=== PATIENT | female | born 1950 | race Caucasian/White ===

== ENCOUNTER → 2022-12-11 14:23 | Outpatient (CLI) | payer MEDICARE, SELFPAY ==
--- NOTE | 2022-12-11 14:31 | DI.RAD.S_ITS ---
PROCEDURE: XR KNEE LT 3V INDICATIONS: ACUTE PAIN ON LEFT KNEE TECHNIQUE: 3 views of the knee were acquired. COMPARISON: None. FINDINGS: Bones: No fractures or dislocations. No suspicious bony lesions. Mild tricompartmental osteoarthritis with osseous hypertrophy. Soft tissues: Small joint effusion. Chondrocalcinosis. IMPRESSION: Mild left knee tricompartmental osteoarthritis. Small nonspecific joint effusion. Dictated by: Isabela Darby MD, PhD on 12/11/2022 at 14:58 Approved by: Isabela Darby MD, PhD on 12/11/2022 at 14:59
== END ==
PROVIDERS: PCP Family Medicine; Referring Provider Family Medicine; Visit Provider Family Medicine
DX: M17.12 Unilateral primary osteoarthritis, left knee (principal); M25.562 Pain in left knee; M25.462 Effusion, left knee
CPT/HCPCS: 73562

== ENCOUNTER → 2023-05-04 11:03 | Outpatient (CLI) | payer MEDICARE, SELFPAY ==
--- NOTE | 2023-05-04 | DI.CT.S_ITS ---
PROCEDURE: CT FOOT RIGHT WITHOUT CON INDICATIONS: other specified soft tissue disorders TECHNIQUE: Noncontrast 1-1.5 mm axial sections acquired from above the tibiotalar joint to the bottom of the calcaneus, with coronal and sagittal reformats. COMPARISON: None. FINDINGS: Image quality: Excellent. Bones: Ankle mortise is congruent. Alignment of right foot is anatomic. No acute fracture or dislocation. Well corticated tiny bony fragments are noted adjacent to tip of medial malleolus consistent with old injury. No definite osteochondral injuries of talar dome. Osteoarthritic changes are noted throughout right foot joints. No metatarsal stress fractures. No suspicious bony lesions. Well-defined plantar and dorsal calcaneal enthesophytes are seen. tendon insertion. No bony erosive changes are noted. Soft tissues: There is subcutaneous soft tissue edema involving plantar aspect of right heel with skin thickening and subcutaneous fat stranding. No subcutaneous emphysema. No discrete drainable fluid collection is seen. Thickened distal Achilles tendon at its posterior calcaneal insertion is noted. No Achilles tendon rupture. The extensor, flexor, and peroneus tendons are grossly intact. No soft tissue mass is seen. IMPRESSION: 1. Suggestion of mild cellulitis involving plantar aspect of posterior right heel soft tissue. No discrete drainable fluid collection. No soft tissue mass is seen. 2. Osteoarthritic changes throughout right foot. No acute fracture or dislocation. No CT evidence of osteomyelitis. 3. Well-defined plantar and dorsal calcaneal enthesophytes. Thickened distal Achilles tendon suggestive of tendinosis. No Achilles tendon rupture. Dictated by: Carlos Sanchez M.D. on 05/04/2023 at 12:42 Approved by: Carlos Sanchez M.D. on 05/04/2023 at 13:16
== END ==
PROVIDERS: PCP Family Medicine; Referring Provider Family Medicine; Visit Provider Family Medicine
DX: M79.89 Other specified soft tissue disorders (principal); M77.31 Calcaneal spur, right foot
CPT/HCPCS: 73700

== ENCOUNTER → 2023-09-15 12:13 | Outpatient (CLI) | payer MEDICARE, SELFPAY ==
--- NOTE | 2023-09-15 | DI.ECHO.S_ITS ---
[place] +---------+ Hospital : : [address] : [place] [address] : : [id number] : : Phone: [phone] Echocardiogram Report + + :Name: ROBERTH ALVAREZ Study Date: 09/15/2023 Height: 66 in : :[facility] ReadingLocation: Weight: 165 lb : : Gender: Female BSA: 1.8 m2 : :: 1950 Age: 72 yrs BP: 141/89 mmHg: :Reason For Study: MURMUR : :Ordering Physician: LYNNETTE, : :JASON Diana Performed By: Tila Mancilla : :Referring: JASON CHURCH : + + Interpretation Summary 1) Normal left ventricular thickness, size, wall motion, and systolic function (EF 60-65%). 2) Normal right ventricular size and function. 3) There is mild to moderate aortic stenosis (valve area 1.3cm2, mean gradient 17mmHg, severity ratio 0.48). 4) No prior Echo available for comparison. Procedure: A two-dimensional transthoracic echocardiogram with color flow and Doppler was performed. The study quality was technically adequate. There is no prior echocardiogram noted for this patient. The patient was in sinus rhythm with heart rates between 73-81 bpm during the exam. Left Ventricle: The left ventricle is normal in size and wall thickness. The ejection fraction is estimated to be 60-65%. Left ventricular systolic function appears normal without focal wall motion abnormalities. Diastolic parameters suggest a relaxation abnormality of the left ventricle, consistent with probable normal filling pressures. Right Ventricle: The right ventricle is normal in size and function. Atria: The left atrial size is normal. Right atrial size is normal. There is no Doppler evidence for an interatrial shunt. Mitral Valve: There is mild mitral annular calcification. The mitral valve leaflets appear borderline thickened, but open well. There is trace mitral regurgitation. Aortic Valve: The aortic valve is moderately calcified. The aortic valve is trileaflet. The peak aortic velocity is 2.6 m/sec. The aortic valve mean gradient is 17 mmHg. The calculated aortic valve area is 1.3 cm2. There is mild to moderate aortic stenosis. No aortic regurgitation is present. Tricuspid Valve: The tricuspid valve is normal in structure and function. There is trace tricuspid regurgitation. Pulmonary artery pressures cannot be estimated because of the lack of a measurable TR jet velocity. Pulmonic Valve: The pulmonic valve leaflets are thin and pliable; valve motion is normal. There is no pulmonic valvular regurgitation. Great Vessels: The aortic root is normal size. The dimensions of the ascending aorta are normal. The IVC is of normal diameter and collapses greater than 50% with a sniff. This suggests a low right atrial pressure of 3 mm Hg. Pericardium/ Pleura There is no pericardial effusion. There is no pleural effusion. MMode/2D Measurements & Calculations LVIDd: 4.3 cm LVOT diam: 2.0 cm LVIDs: 2.8 cm Ao root diam: 3.1 cm FS: 35.0 % asc Aorta Diam: 3.4 cm IVSd: 0.93 cm Ao Arch Diam (Prox Trans): 2.8 cm LVPWd: 0.99 cm LV lopes. diameter/BSA (cm/m^2): 2.3 LV sys. diameter/BSA (cm/m^2): 1.5 LA A2 area: 18.1 cm2 RA long axis: 4.8 cm LA A4 area: 17.2 cm2 RA area: 13.8 cm2 LA length (vol): 5.2 cm RA vol: 33.7 ml LA vol: 50.7 ml RA : 18.3 ml/m2 LA vol index: 27.5 ml/m2 IVC diam: 2.1 cm RVD1 (basal): 3.1 cm RVD2 (mid): 2.7 cm TAPSE: 1.7 cm Doppler Measurements & Calculations Ao V2 max: 264.9 cm/sec LVOT Max Leonid: 113.7 cm/sec Ao V2 mean: 175.8 cm/sec LV V1 max P.2 mmHg Ao max P.9 mmHg LV V1 VTI: 25.5 cm Ao mean P.3 mmHg MAGUI(I,D): 1.5 cm2 Ao V2 VTI: 52.8 cm MAGUI(V,D): 1.3 cm2 sev ratio: 0.48 MAGUI indexed to BSA (cm^2/m^2): 0.80 MV E max leonid: 70.9 cm/sec PA V2 max: 106.8 cm/sec MV A max leonid: 101.3 cm/sec PA V2 mean: 77.9 cm/sec MV E/A: 0.70 PA mean P.7 mmHg Med Peak E' Leonid: 6.5 cm/sec PA pr(Accel): 34.5 mmHg E/E' med: 11.0 Lat Peak E' Leonid: 6.7 cm/sec E/E' lat: 10.6 E/e' average: 10.8 MV dec time: 0.24 sec SV(LVOT): 77.6 ml Reading Physician:02:10 PM
== END ==
PROVIDERS: PCP Family Medicine; Referring Provider Family Medicine; Visit Provider Family Medicine
DX: I34.81 Nonrheumatic mitral (valve) annulus calcification (principal); I35.0 Nonrheumatic aortic (valve) stenosis; R01.1 Cardiac murmur, unspecified
CPT/HCPCS: 93306

== ENCOUNTER 2024-01-18 10:36 | Day surgery (SDC) | payer MEDICARE, SELFPAY ==
--- NOTE | 2024-01-18 | PATH_ITS ---
[facility] Accession Number: [id number] No. of containers..01 Tissue . 01 Material submitted: . gastrointestinal site - GASTRIC POLYPS . 01 Diagnosis: GASTRIC POLYPS: Fundic gland polyp. No Helicobacter organisms identified on H/E stain. No intestinal metaplasia, dysplasia, or malignancy identified. [facility] 01/20/2024 1251 Local . 01 Electronically signed: . Warren Ko MD, Pathologist NPI- [id number] . 01 Gross description: . Received in formalin with two patient identifiers and gastric polyp, are two russell soft tissue fragments, both measuring 0.3 cm in greatest dimension, submitted in A1. ([id number]) /MRV 01/20/2024 125 Local . 01 Pathologist provided ICD-10: K31.7 . 01 CPT . 415255 Specimen Comment: A courtesy copy of this report has been sent to [phone] Performed at: [address] [facility] [address], [place], [place] [id number] MD Warren Ko MD Phone: [phone]
[2024-01-18 11:18] VITALS: BP 158/98; PULSE 90; RESP 16; TEMP 36.8; O2SAT 97
--- NOTE | 2024-01-18 11:30 | P.HP_ITS ---
History of Present Illness History of Present Illness Chief complaint: EGD/Colonoscopy Narrative: History of GERD currently under fairly reasonable control. In addition history of colonic polyps with 6 year follow-up colonoscopy [facility] Medical History (Updated 01/16/23 @ 15:33 by Renea Higuera) Measles (~1954) Chicken pox (~1953) Tinnitus (~2009) GERD (gastroesophageal reflux disease) (~2017) Surgical History (Updated 01/16/23 @ 15:33 by Renea Higuera) Anesthesia Cervical dysplasia (~1981) Family History (Updated 01/16/23 @ 15:34 by Renea Higuera) Father Alzheimer's disease Mother Hypertension Hyperlipidemia Alzheimer's disease Brother Colon cancer Social History Smoking Status: Never smoker alcohol intake: current Meds Home Medications and Allergies Home Medications Medication Instructions Recorded Confirmed Type atorvastatin 10 mg tablet 10 mg PO DAILY 01/18/24 01/18/24 History enalapril maleate 5 mg tablet 5 mg PO DAILY 01/18/24 01/18/24 History famotidine 40 mg tablet 40 mg PO DAILY 01/18/24 01/18/24 History hydrochlorothiazide 12.5 mg capsule 12.5 mg PO DAILY 01/18/24 01/18/24 History Allergies Allergy/AdvReac Type Severity Reaction Status Date / Time belladonna alkaloids Allergy Intermediate Confusion Verified 01/18/24 11:05 Exam Vital Signs (past 8 hours): - 01/18/24 11:18 Temperature 98.2 F Pulse Rate 90 Respiratory Rate 16 Blood Pressure 158/98 H Pulse Oximetry 97 Oxygen Delivery Method Room Air Oxygen Delivery Method Room Air Narrative Exam Narrative: Oropharynx free of lesions Chest clear to auscultation percussion Assessment & Plan Assessment & Plan narrative: Need for follow-up screening colonoscopy for history of a polyp 6 years ago. Risks, benefits, alternatives have been explained. EGD to be done for history of GERD Time-Based Coding :: [TOTAL MINUTES] spent with patient and on the chart (including review of chart, obtaining history, exam, reviewing outside data, placing orders, documenting exam and treatment plan, and counseling patient) on [DATE].
--- NOTE | 2024-01-18 11:32 | PM.OP.EC ---
Operative Date/Time/Diagnoses Date of procedure: 01/18/24 Pre-op diagnosis: See indication and findings Procedure & Clinicians Study performed: EGD and colonoscopy Indications: Follow-up screening for a polyp 6 years ago all and history of GERD Surgeon: Josue Bermeo Procedure Notes Procedure in detail: After informed consent was obtained the patient was placed in left lateral decubitus position. The video upper scope was placed into the oropharynx and with the patient's help swallowed into the esophagus. The esophagus stomach and duodenum were carefully examined. On withdrawal, retroflexed view the GE junction was performed. The scope was removed. The patient tolerated procedure well. The patient was then turned to the scope substituted for a colonoscope. This was introduced into the rectum slowly advanced to the cecum. On slow withdrawal mucosa was carefully examined. The scope was removed. The patient does the procedure well. Blood loss none Complications none Sedation mac Findings EGD 1. Completely normal esophagus and squamocolumnar junction 2. Normal lower esophageal sphincter 3. Multiple semi sessile polyps in the body. Biopsies sampled. Expect these to be fundic gland polyps 4. Normal distal stomach 5. Normal duodenal bulb and sweep Colonoscopy 1. 3 cm submucosal sessile yellow polypoid lesion with a positive pillow sign consistent with lipoma in the mid ascending colon 2. Otherwise negative colonoscopy to cecum Patient should have follow-up colonoscopy at age 80
[2024-01-18 12:13] VITALS: BP 99/60; PULSE 68; RESP 14; TEMP 36.8; O2SAT 96
[2024-01-18 12:18] VITALS: BP 105/68; PULSE 68; RESP 16; O2SAT 96
[2024-01-18 12:23] VITALS: BP 110/76; PULSE 80; RESP 14; O2SAT 96
[2024-01-18 12:33] VITALS: BP 115/79; PULSE 69; RESP 17; TEMP 36.7; O2SAT 95
== END 2024-01-18 12:51 | disposition home or self-care (01) ==
PROVIDERS: PCP Family Medicine; Referring Provider Internal Medicine Gastroenterology; Visit Provider Internal Medicine Gastroenterology
PROC: 0DJ08ZZ Inspection of Upper Intestinal Tract, Via Natural or Artificial Opening Endoscopic (ICD-10-PCS; CPT 43235; principal; 2024-01-18 12:30)
PROC: 0DJD8ZZ Inspection of Lower Intestinal Tract, Via Natural or Artificial Opening Endoscopic (ICD-10-PCS; CPT 45378; 2024-01-18 12:30)
DX: Z12.11 Encounter for screening for malignant neoplasm of colon (principal); Z86.0100 Personal history of colon polyps, unspecified; K63.5 Polyp of colon; K21.9 Gastro-esophageal reflux disease without esophagitis; K31.7 Polyp of stomach and duodenum
CPT/HCPCS: 43239; G0105; J2704